=== PATIENT | female | born 2000 | race Caucasian/White ===

== ENCOUNTER 2022-01-26 02:57 | Emergency (ER) | payer OTHER, SELFPAY ==
[2022-01-26] MEDS: ONDANSETRON 4 MG/2 ML INJ IV (03:10)
[2022-01-26] MEDS: SODIUM CHLORIDE 0.9% 1,000 ML 1000 ML IV (03:10)
[2022-01-26 03:12] VITALS: BP 110/74; PULSE 70; RESP 20; TEMP 36.7; O2SAT 98; BMI 28.1
[2022-01-26 03:33] LABS: Add Manual Diff / Slide Review NO; Basophils Absolute Auto 0 /uL (0-100); Basophils Percent Auto 0.3 % (0-2); Eosinophils Absolute Auto 0 /uL (0-450); Eosinophils Percent Auto 0.5 % (2-4); Hematocrit 42.7 % (36-46); Hemoglobin 14.3 g/dL (12.0-16.0); Lymphocytes Absolute Auto 2000 /uL (1100-4500); Mean Corpuscular HGB Conc 33.6 % (30-36); Mean Corpuscular Hemoglobin 27.9 PG (26-34); Mean Corpuscular Volume 83.1 fL (80-100); Monocytes Absolute Auto 500 /uL (0-900); Monocytes Percent Auto 6.2 % (3-14); Neutrophils Absolute Auto 5600 /uL (1500-7000); Platelet Count 230 X10^3/uL (150-400); Red Blood Cell Count 5.13 X10^6/uL (4.0-5.2); White Blood Cell Count 8.1 X10^3/uL (4.5-11.0)
[2022-01-26 03:36] LABS: Ethanol (ETOH) 227 mg/dL
--- NOTE | 2022-01-26 03:37 | PC.NURSE ---
Pt ambulated to restroom with SBA.
[2022-01-26 03:38] LABS: Alanine Aminotransferase 17 IU/L (<35); Albumin 4.7 g/dL (3.5-5.0); Albumin Globulin Ratio 1.3 (1.0-2.8); Alkaline Phosphatase 56 U/L (38-126); Aspartate Aminotransferase 27 IU/L (14-36); Bilirubin Total 0.4 mg/dL (0.2-1.3); Blood Urea Nitrogen 10 mg/dL (7-17); Calcium 8.9 mg/dL (8.4-10.2); Carbon Dioxide 26 mmol/L (22-32); Chloride 106 mmol/L (98-107); Estimated Glomerular Filt Rate > 60 mL/min (>60); Globulin 3.6 g/dL (1.7-4.1); Glucose 94 mg/dL (70-100); HEMOLYSIS < 15 (0-50); Potassium 3.8 mmol/L (3.4-5.1); Sodium 145 mmol/L (137-145); Total Protein 8.3 g/dL (6.3-8.2)
--- NOTE | 2022-01-26 03:42 | ED.GENADULT ---
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 She had had an episode of emesis and was difficult to arouse. There were no immediate friends around to assume responsibility so 911 was called and she was transported to the emergency room for more thorough evaluation and safety. On arrival she is still intoxicated, able to speak in full sentences alert and oriented somewhat abashed that she is in the emergency department and hoping that she will not face further consequences and she is quite proud of a the achievements she has made so far in the [employer]. Review of Systems Review of Systems Narrative: Remainder of complete review of systems is otherwise unremarkable except for that included in the HPI. Patient History Social History Smoking Status: Never smoker Smoking Status: Never smoker alcohol intake frequency: holidays/special occasions only Substance Use Type: does not use Exam Initial Vital Signs Initial Vital Signs: Vital Signs Temperature 98.1 F 01/26/22 03:12 Pulse Rate 70 01/26/22 03:12 Respiratory Rate 20 01/26/22 03:12 Blood Pressure 110/74 01/26/22 03:12 Pulse Oximetry 98 01/26/22 03:12 Oxygen Delivery Method 01/26/22 03:12 General: Healthy appearing, in no acute distress. Pleasantly intoxicated, slightly slurred speech, cooperative and redirectable HEENT: Moist mucous membranes, normal sclera with reactive pupils, Neck: supple Respiratory: Lungs are clear to auscultation, no wheezing no rales no rhonchi. Full and symmetrical air movement Cardiac: Regular rate and rhythm no murmurs no bruits Abdomen: Soft, nontender, good bowel tones, no flank pain Skin: Warm and dry, no rashes Neurologic: intoxicated but otherwise Grossly neurologically intact with no obvious asymmetries or abnormalities Extremities: No trauma, well perfused Psych: Cooperative, Course Orders Ordered: ED Orders 01/26/22 03:10 Complete Blood Count AUTO DIFF Stat Comprehensive Metabolic Panel Stat ETOH [Ethanol (ETOH)] Stat Discontinued Medications Sodium Chloride (Normal Saline 0.9%) 1,000 mls @ 1,000 mls/hr IV BOLUS ONE Stop: 01/26/22 04:02 Last Admin: 01/26/22 03:10 Dose: 1,000 mls/hr Documented By: KRISTI Ondansetron HCl (Ondansetron 4 Mg/2 Ml Inj) 4 mg IV NOW ONE Stop: 01/26/22 03:04 Last Admin: 01/26/22 03:10 Dose: 4 mg Documented By: KRISTI Vital Signs Vital signs: Vital Signs - 8 hr 01/26/22 03:12 01/26/22 04:20 Temperature 98.1 F Pulse Rate 70 79 Respiratory Rate 20 18 Blood Pressure 110/74 113/81 Pulse Oximetry 98 98 Oxygen Delivery Method Room Air Room Air Medical Decision Making Lab Data Result diagrams: 01/26/22 03:10 01/26/22 03:10 Labs: Lab Results 01/26/22 01/26/22 01/26/22 Range/Units 03:10 03:10 03:10 WBC 8.1 (4.5-11.0) X10^3/uL RBC 5.13 (4.0-5.2) X10^6/uL Hgb 14.3 (12.0-16.0) g/dL Hct 42.7 (36-46) % MCV 83.1 (80-100) fL MCH 27.9 (26-34) PG MCHC 33.6 (30-36) % RDW 15.0 H (11.6-14.8) % Plt Count 230 (150-400) X10^3/uL Neut % (Auto) 69.0 (50-75) % Lymph % (Auto) 24.0 L (25-40) % Rooks % (Auto) 6.2 (3-14) % Eos % (Auto) 0.5 L (2-4) % Baso % (Auto) 0.3 (0-2) % Neut # (Auto) 5600 (5209-8867) /uL Lymph # (Auto) 2000 (0190-8375) /uL Rooks # (Auto) 500 (0-900) /uL Eos # (Auto) 0 (0-450) /uL Baso # (Auto) 0 (0-100) /uL Sodium 145 (137-145) mmol/L Potassium 3.8 (3.4-5.1) mmol/L Chloride 106 (98-107) mmol/L Carbon Dioxide 26 (22-32) mmol/L BUN 10 (7-17) mg/dL Creatinine 0.83 (0.52-1.04) mg/dL Estimated GFR > 60 (>60) mL/min BUN/Creatinine Ratio 12.0 (6-22) Glucose 94 (70-100) mg/dL Calcium 8.9 (8.4-10.2) mg/dL Total Bilirubin 0.4 (0.2-1.3) mg/dL AST 27 (14-36) IU/L ALT 17 (<35) IU/L Alkaline Phosphatase 56 (38-126) U/L Total Protein 8.3 H (6.3-8.2) g/dL Albumin 4.7 (3.5-5.0) g/dL Globulin 3.6 (1.7-4.1) g/dL Albumin/Globulin Ratio 1.3 (1.0-2.8) Ethyl Alcohol 227 H ( - 10) mg/dL MDM Narrative Medical decision making narrative: 21-year-old woman who is intoxicated after returning home from recent deployment. Found alone in hallway. She is so bring nicely. She is given a L of fluid along with Zofran to help with the consequences of her evening of drinking when she leticia. No evidence of suicidal ideation or other concerns. Which she leticia and can contact a friend pick her up she will be safe for home discharge Discharge Plan Departure Patient Disposition: Home Clinical Impression: Alcoholic intoxication Instructions: DI for Alcohol Poisoning Activity Restrictions/Additional Instructions: I am sorry you ended up in the emergency room tonight I am glad that you did not end up hurting yourself. Celebrating is a good thing, however moderation is going to be even better. In the emergency department you were given some nausea medicine as well as fluid. Hopefully this will help somewhat with the hangover that I expect you will have today. Please consider significantly moderating if not even completely stopping drinking for number of months. Please remember that [place], it is not legal for you to consume alcohol until April 12 of this year. Visit Report Forms: Patient Portal/API
[2022-01-26 04:20] VITALS: BP 113/81; PULSE 79; RESP 18; O2SAT 98
== END 2022-01-26 04:21 | disposition home or self-care (01) ==
PROVIDERS: Emergency Provider Emergency Medicine
DX: F10.129 Alcohol abuse with intoxication, unspecified (principal); Y90.7 Blood alcohol level of 200-239 mg/100 ml
CPT/HCPCS: 36415; 80053; 80320; 85025; 96374; 99284; J2405

== ENCOUNTER → 2022-12-09 16:19 | Outpatient (CLI) | payer OTHER, SELFPAY ==
--- NOTE | 2022-12-09 16:22 | DI.US.S_ITS ---
PROCEDURE: US OB <= 14 WEEKS FETUS INDICATIONS: DATING OUTSIDE/PRIOR DATING DATA: Last menstrual period (LMP): 09/09/2022. LMP-based estimated date of delivery (CASEY): 06/16/2023. First dating scan (date and location): 12/09/2022. Estimated date of delivery (CASEY) from first dating scan: 06/28/2023. TECHNIQUE: Real-time scanning was performed of the fetus and maternal pelvic organs, with image documentation. COMPARISON: None. FINDINGS: Embryo: [place]-rump length of 4.5 cm corresponding to a gestational age of 11 weeks 2 days Heart rate: 169 beats per minute Maternal organs: Ovaries are unremarkable. Probable right-sided corpus luteum. IMPRESSION: Single living intrauterine with gestational age by crown rump length of 11 weeks 2 days, discordant with clinical dates. We strive to produce accurate, complete, and clear reports of imaging services. To assist us in improving patient care, this report was composed using standard report templates and voice recognition software. Therefore, it may contain abnormal punctuation, insertions and/or omissions. Occasional wrong-word or sound-alike substitutions may occur. Though we review the report and make efforts to correct it, we do recommend that the report be read carefully in proper context to recognize any text inaccuracies. Dictated by: Dionte Charles M.D. on 12/10/2022 at 21:45 Approved by: Dionte Charles M.D. on 12/10/2022 at 22:10
== END ==
PROVIDERS: Referring Provider Family Medicine; Visit Provider Family Medicine
DX: Z34.01 Encounter for supervision of normal first pregnancy, first trimester (principal); Z3A.11 11 weeks gestation of pregnancy
CPT/HCPCS: 76801

== ENCOUNTER 2022-12-23 19:19 | Emergency (ER) | payer OTHER, SELFPAY ==
[2022-12-23 19:22] VITALS: BP 128/80; PULSE 69; RESP 16; TEMP 36.9; O2SAT 100; BMI 29.3
[2022-12-23 20:01] LABS: Appearance Urine UA CLEAR; Bilirubin Urine UA NEGATIVE (NEGATIVE); Color Urine UA YELLOW; Glucose Urine UA NEGATIVE (Negative); Ketones Urine UA NEGATIVE (NEGATIVE); Leukocyte Esterase Urine UA NEGATIVE (NEGATIVE); Nitrite Urine UA NEGATIVE (Negative); Occult Blood Urine UA NEGATIVE (Negative); Protein Urine UA NEGATIVE (Negative); Specific Gravity Urine UA 1.015 (1.000-1.035); Urobilinogen Urine UA 0.2 E.U./dL (0.2)
[2022-12-23 20:11] LABS: pH Urine UA 6.5 (4.5-8.0)
[2022-12-23 20:18] LABS: Amorphous Sediment Urine 2+; Bacteria Urine Few (2-10); Culture Indicated Urine Cult Not Indicated; RBC Urine None Seen (0-5/HPF); Squamous Epithelial Cell Urine 0-1 /HPF (0-5/HPF); WBC Urine 0-1/HPF (0-5/HPF)
[2022-12-23] MEDS: ACETAMINOPHEN 325 MG TABLET 650 MG PO (20:38)
[2022-12-23] MEDS: ONDANSETRON 4 MG ODT PO (20:38)
--- NOTE | 2022-12-23 20:57 | ED_ITS ---
HPI - Headache General Chief Complaint: Headache Stated Complaint: 13wks , vomiting excessively, dizzy Time Seen by Provider: 12/23/22 20:49 Mode of arrival: Ambulatory History of Present Illness HPI Narrative: Patient is a 22-year-old female currently 13 weeks . Presenting today with headache nausea vomiting and some dizziness. She said she has been doing well until today. She thought she might pass out due to the nausea vomiting dizziness. However now she is feeling better she received Tylenol and Zofran here in the ER. Vitals were stable. She is have any fever chills. No abdominal pain vaginal bleeding or any symptoms. Related Data Home Medications Medication Instructions Recorded Confirmed prenat.vits,allan,[id number] 1 tab PO DAILY 12/05/22 12/05/22 Previous Rx's Medication Instructions Recorded cephalexin 500 mg capsule 500 mg PO BID 7 days #14 caps 12/23/22 ondansetron 4 mg disintegrating 4 mg PO Q8H PRN nausea and 12/23/22 tablet vomiting #10 tabs Allergies Allergy/AdvReac Type Severity Reaction Status Date / Time No Known Drug Allergies Allergy Verified 12/23/22 19:30 Review of Systems Review of Systems ROS Unobtainable: All systems reviewed & are unremarkable except as noted in HPI and below Patient History Medical History (Updated 12/23/22 @ 21:09 by Sushma Flood DO) Acne Eczema History of broken finger Right wrist fracture Surgical History (Updated 12/05/22 @ 15:36 by Funmilayo Honeycutt RN) [place] teeth extracted Family History (Updated 12/05/22 @ 15:40 by Funmilayo Honeycutt RN) Grandmother Diabetes mellitus Hypertension Kidney failure Heart disease Grandfather Diabetes mellitus Asthma Family/Other Diabetes mellitus Heart attack Family/Other Diabetes mellitus Mother Diabetes mellitus Liver transplanted Alcohol abuse Father Family estrangement Social History marital status: unmarried,single number of children: 0 lives independently: Yes caregiver/support person: No housing: other (barracks) pets and animals: No education level: high school occupational status: employed (active duty) current occupational exposures/hazards: No (no HazMat duties since ) special karissa needs: No travel history: recent (domestic only) seatbelt use: always water heater temp set < 120 deg: Yes working smoke detector in home: Yes fire extinguisher in home: Yes carbon monox detector in home: Yes firearms in home: No do you feel safe at home: Yes Smoking Status: Former smoker second hand exposure: No alcohol intake: former (occasionally when not ) substance use type: does not use during the past year weight has: remained stable well-balanced diet: about half the time daily servings fruits/ve-4 caffeine: Yes (1 cup coffee in AM) Type(s) of exercise: walking Smoking Status: Former smoker alcohol intake frequency: holidays/special occasions only Substance Use Type: does not use Exam Initial Vital Signs Initial Vital Signs: Vital Signs Temperature 98.5 F 12/23/22 19:22 Pulse Rate 69 12/23/22 19:22 Respiratory Rate 16 12/23/22 19:22 Blood Pressure 128/80 12/23/22 19:22 Pulse Oximetry 100 12/23/22 19:22 Oxygen Delivery Method Room Air 12/23/22 19:22 GENERAL: Awake alert well-appearing 22-year-old female sitting upright laughing smiling hears well HEENT: Head atraumatic,EOMI, pupils reactive, face symmetric, moist mucous membranes CARDIOVASCULAR: Regular rate and rhythm without murmurs, rubs or gallops. RESPIRATORY: Breath sounds equal bilaterally, no wheezes rales or rhonchi. ABDOMEN: Soft, nontender. Normoactive bowel sounds all 4 quadrants. No guarding or rebound. EXTREMITIES: Normal range of motion, no clubbing or edema. Neurovascularly intact NEUROLOGICAL: Alert and oriented x4. SKIN: Warm, dry, no laceration, no petechiae, no rashes or lesions. Course Orders Ordered: ED Orders 12/23/22 19:43 Urinalysis and Microscopic Stat 12/23/22 21:05 Urine Culture Stat Discontinued Medications Acetaminophen (Acetaminophen 325 Mg Tablet) 650 mg PO NOW ONE Stop: 12/23/22 20:12 Last Admin: 12/23/22 20:38 Dose: 650 mg Documented By: Cefazolin Sodium (Cephalexin 250 Mg Cap Prepack) 1 bottle MISC SEEINSTR ONE Stop: 12/23/22 21:15 Last Admin: 12/23/22 21:38 Dose: 2 cap Documented By: GC Ondansetron HCl (Ondansetron 4 Mg Odt) 4 mg PO NOW ONE Stop: 12/23/22 20:12 Last Admin: 12/23/22 20:38 Dose: 4 mg Documented By: Vital Signs Vital signs: Vital Signs - 8 hr 12/23/22 21:49 Pulse Rate 63 Respiratory Rate 16 Blood Pressure 111/81 Pulse Oximetry 99 Oxygen Delivery Method Room Air MDM - Headache Lab Data Labs: Lab Results 12/23/22 Range/Units 19:43 Urine Color Yellow Urine Appearance Clear Urine pH 6.5 (4.5-8.0) Ur Specific [place] 1.015 (1.000-1.035) Urine Protein Negative (Negative) Urine Glucose (UA) Negative (Negative) g/dL Urine Ketones Negative (NEGATIVE) Urine Occult Blood Negative (Negative) Urine Nitrate Negative (Negative) Urine Bilirubin Negative (NEGATIVE) Urine Urobilinogen 0.2 (0.2) E.U./dL Ur Leukocyte Esterase Negative (NEGATIVE) Urine RBC None seen (0-5/HPF) Urine WBC 0-1/hpf (0-5/HPF) Ur Squamous Epith Cells 0-1 /hpf (0-5/HPF) Amorphous Sediment 2+ Urine Bacteria Few (2-10) H (None) Ur Culture Indicated? Cult not indicated MDM Narrative Medical decision making narrative: Patient well-appearing 22-year-old female sitting up smiling laughing. Vitals are stable. She does have some bacteria in her urine no leukocytes or nitrates will go ahead and treat for a UTI. She had a ultrasound on December 09 showing a single IUP at 11 weeks and 2 days at that time. Not having any abdominal pain vaginal bleeding no need for repeat ultrasound today. Vitals are stable not significantly dehydrated. No evidence of severe sepsis. Discharge Plan Departure Patient Disposition: Home Clinical Impression: UTI (urinary tract infection) Instructions: DI for Urinary Tract Infection (UTI) Activity Restrictions/Additional Instructions: *You have been diagnosed with UTI with *What to do: Increase fluids as tolerated. You do have a mild bladder infection. Your symptoms should improve with antibiotics. *Continue to take medications as directed -->DOD Keflex 500 mg twice a day for 7 days Zofran 4 mg every 8 hours if needed for nausea or vomiting *Follow up with your primary care provider in 2-3 days or call [phone] *Return to ER if you should have persistent vomiting abdominal pain vaginal bleeding passing out or any new, worsening or concerning symptoms Prescriptions: New cephalexin 500 mg capsule 500 mg PO BID 7 Days Qty: 14 0RF ondansetron 4 mg tablet,disintegrating 4 mg PO Q8H PRN (Reason: nausea and vomiting) Qty: 10 0RF No Action prenat.vits,allan,[id number] Tablet 1 tab PO DAILY Referrals: ProviderLilia [Primary Care Provider] - Stand Alone Forms: Patient Portal/API
[2022-12-23] MEDS: cephALEXin 250 MG CAP PREPACK 1 BOTTLE MISC (21:38)
[2022-12-23 21:49] VITALS: BP 111/81; PULSE 63; RESP 16; O2SAT 99
== END 2022-12-23 21:50 | disposition home or self-care (01) ==
PROVIDERS: Emergency Provider Emergency Medicine
DX: O23.41 Unspecified infection of urinary tract in pregnancy, first trimester (principal); R51.9 Headache, unspecified; Z3A.13 13 weeks gestation of pregnancy
CPT/HCPCS: 81001; 87086; 99283

== ENCOUNTER → 2022-12-31 14:59 | Outpatient (CLI) | payer OTHER, SELFPAY ==
[2022-12-31 15:43] LABS: Appearance Urine UA CLEAR; Bilirubin Urine UA NEGATIVE (NEGATIVE); Color Urine UA YELLOW; Glucose Urine UA NEGATIVE (Negative); Ketones Urine UA NEGATIVE (NEGATIVE); Leukocyte Esterase Urine UA NEGATIVE (NEGATIVE); Nitrite Urine UA NEGATIVE (Negative); Occult Blood Urine UA NEGATIVE (Negative); Protein Urine UA NEGATIVE (Negative); Urobilinogen Urine UA 0.2 E.U./dL (0.2)
[2022-12-31 16:25] LABS: Add Manual Diff / Slide Review NO; Basophils Absolute Auto 0 /uL (0-100); Basophils Percent Auto 0.5 % (0-2); Eosinophils Absolute Auto 0 /uL (0-450); Eosinophils Percent Auto 0.6 % (2-4); Hematocrit 34.8 % (36-46); Hemoglobin 11.8 g/dL (12.0-16.0); Lymphocytes Absolute Auto 1600 /uL (1100-4500); Lymphocytes Percent Auto 21.9 % (25-40); Mean Corpuscular Hemoglobin 27.2 PG (26-34); Monocytes Absolute Auto 600 /uL (0-900); Monocytes Percent Auto 7.4 % (3-14); Neutrophils Absolute Auto 5200 /uL (1500-7000); Neutrophils Percent Auto 69.6 % (50-75); Platelet Count 186 X10^3/uL (150-400); Red Blood Cell Count 4.35 X10^6/uL (4.0-5.2); Red Cell Distribution Width 13.5 % (11.6-14.8); White Blood Cell Count 7.5 X10^3/uL (4.5-11.0)
[2022-12-31 16:56] LABS: GTT (PREG) 1 Hour PP 50gm Dose 136 mg/dL (76-139)
[2023-01-01 06:19] LABS: RPR Screen Non Reactive (Non Reactive)
[2023-01-01 11:37] LABS: Varicella IgG Antibody 686 index (Immune >165)
[2023-01-02 16:10] LABS: Hepatitis B Surface Antigen NEGATIVE s/c (NEGATIVE); Rubella Antibody IgG 27.9 IU/mL (>15)
[2023-01-02 16:29] LABS: HIV 1 & 2 Ab/Ag 4th Gen Combo NEGATIVE (NEGATIVE); Hep C Virus Ab w/Reflex Quant NEGATIVE s/c (NEGATIVE)
== END ==
PROVIDERS: Referring Provider Family Medicine; Visit Provider Family Medicine
DX: Z34.01 Encounter for supervision of normal first pregnancy, first trimester (principal)
CPT/HCPCS: 80055; 81003; 82950; 86787; 86803; 86850; 86900; 86901; 87077; 87086; 87186; 87389

== ENCOUNTER → 2023-01-29 14:54 | Outpatient (CLI) | payer OTHER, SELFPAY ==
[2023-02-01 20:33] LABS: Estriol, Free 1.35 ng/mL (.); Inhibin A, Dimeric 155.02 pg/mL (.); Inhibin A, MoM 1.16 (.); Maternal Ethnicity Caucasian (.); Maternal Weight 197 lbs (.); Number of Fetuses No (.); OSBR Risk 1 IN 10000 (.); Results Report (.); Test Results *Screen Negative* (.); hCG, MoM 0.73 (.); hCG, Serum 16939 mIU/mL (.)
== END ==
PROVIDERS: Referring Provider Family Medicine; Visit Provider Family Medicine
DX: Z34.02 Encounter for supervision of normal first pregnancy, second trimester (principal); Z3A.18 18 weeks gestation of pregnancy
CPT/HCPCS: 36415; 82105; 82677; 84702; 86336

== ENCOUNTER → 2023-02-07 08:00 | Outpatient (CLI) | payer OTHER, SELFPAY ==
--- NOTE | 2023-02-07 08:02 | DI.US.S_ITS ---
PROCEDURE: US OB >= 14 WEEKS FETUS INDICATIONS: ANATOMY SCAN OUTSIDE/PRIOR DATING DATA: Last menstrual period (LMP): 09/09/2022. LMP-based estimated date of delivery (CASEY): 06/16/2023. First dating scan (date and location): 12/09/2022. Estimated date of delivery (CASEY) from first dating scan: 06/28/2023. TECHNIQUE: Real-time scanning was performed of the fetus, with image documentation and biometric measurements. Endovaginal scanning: Not performed COMPARISON: [facility], OB <= 14 WEEKS FETUS, 12/09/2022, 16:56. FINDINGS: General: A single living intrauterine gestation is present. Presentation: Vertex. Placenta: Placental position is anterior , without previa. Amniotic fluid index: 10.7 cm, normal range is 5-24 cm. Single deepest vertical pocket is 3.2 cm. heart rate: 143 beats per minute. Maternal cervical canal: 4.3 cm long. Normal lower limit is 2.5 cm. biometrics: Biparietal diameter: 4.4 centimeters 19 weeks 2 days Head circumference: 16.5 centimeters 19 weeks 2 days Abdominal circumference: 14.4 centimeters 19 weeks 5 days Femur length: 2.9 centimeters 19 weeks 1 day estimated gestational age: 19 weeks 6 days Composite gestational age from present scan: 19 weeks 3 days Estimated weight and percentile: 291 grams, 22nd percentile Anatomic survey: Neuro: Ventricles are non-dilated at less than 10 mm. Cisterna magna is normal at 3-11 mm. Cerebellum is normal in size and morphology. Nuchal skin fold: Normal at less than 6 mm between 14-21 weeks gestational age. Face: Unremarkable orbits. Nose, lips, profile not well visualized. Spine: No evidence for spina bifida. Heart: Four-chamber cardiac view and ventricular outflow tracts not well visualized. Diaphragm: Diaphragm is intact. Stomach: Left-sided stomach is present. Kidneys: No hydronephrosis. Normal is less than 5 mm in 2nd trimester, less than 7 mm in 3rd trimester. Cord: 3-vessel cord has orthotopic insertion. Bladder: Normal in size. Extremities: All 4 extremities identified. IMPRESSION: 1. Single living intrauterine . 2. nose, lips, profile, four-chamber cardiac view, and ventricular outflow tracts not well visualized due to lie. Attention on follow-up is recommended. 3. Otherwise, the visualized anatomy is within normal limits. We strive to produce accurate, complete, and clear reports of imaging services. To assist us in improving patient care, this report was composed using standard report templates and voice recognition software. Therefore, it may contain abnormal punctuation, insertions and/or omissions. Occasional wrong-word or sound-alike substitutions may occur. Though we review the report and make efforts to correct it, we do recommend that the report be read carefully in proper context to recognize any text inaccuracies. Dictated by: Dionte Charles M.D. on 02/07/2023 at 11:05 Approved by: Dionte Charles M.D. on 02/07/2023 at 11:51
== END ==
PROVIDERS: Referring Provider Family Medicine; Visit Provider Family Medicine
DX: Z34.02 Encounter for supervision of normal first pregnancy, second trimester (principal); Z3A.19 19 weeks gestation of pregnancy
CPT/HCPCS: 76811

== ENCOUNTER → 2023-03-10 07:09 | Outpatient (CLI) | payer OTHER, SELFPAY ==
--- NOTE | 2023-03-10 07:10 | DI.US.S_ITS ---
PROCEDURE: US OB >= 14 WEEKS FETUS INDICATIONS: anatomy scan repeat OUTSIDE/PRIOR DATING DATA: Last menstrual period (LMP): 09/09/2019. LMP-based estimated date of delivery (CASEY): 06/16/2023. First dating scan (date and location): 12/09/2022 at . Estimated date of delivery (CASEY) from first dating scan: 06/28/2023. The calculations are made using the working CASEY of 06/28/2023. TECHNIQUE: Real-time scanning was performed of the fetus, with image documentation and biometric measurements. COMPARISON: [facility], OB <= 14 WEEKS FETUS, 12/09/2022, 16:56. [facility], OB >= 14 WEEKS FETUS, 02/07/2023, 8:40. FINDINGS: General: A single living intrauterine gestation is present. Presentation: Vertex. Placenta: Placental position is anterior , without previa. Amniotic fluid index: 11.4 cm, normal range is 5-24 cm. Single deepest vertical pocket is 4.4 cm. heart rate: 149 beats per minute. Maternal cervical canal: 4.4 cm long. Normal lower limit is 2.5 cm. biometrics: Not performed Clinically estimated gestational age: 24 weeks 2 days Other: Face: Nose and lips, facial profile are normal. Heart: 4-chambered heart is present, with normal ventricular outflow tracts. IMPRESSION: 1. A single living intrauterine gestation redemonstrated. 2. Normal nose and lips, facial profile, 4-chamber heart and ventricular outflow tracts. We strive to produce accurate, complete, and clear reports of imaging services. To assist us in improving patient care, this report was composed using standard report templates and voice recognition software. Therefore, it may contain abnormal punctuation, insertions and/or omissions. Occasional wrong-word or sound-alike substitutions may occur. Though we review the report and make efforts to correct it, we do recommend that the report be read carefully in proper context to recognize any text inaccuracies. Dictated by: Omer Avila M.D. on 03/10/2023 at 10:13 Approved by: Omer Avila M.D. on 03/10/2023 at 10:18
== END ==
PROVIDERS: Referring Provider Family Medicine; Visit Provider Family Medicine
DX: Z34.02 Encounter for supervision of normal first pregnancy, second trimester (principal); Z3A.24 24 weeks gestation of pregnancy
CPT/HCPCS: 76811

== ENCOUNTER → 2023-04-04 13:57 | Outpatient (CLI) | payer OTHER, SELFPAY ==
[2023-04-04 14:43] LABS: Add Manual Diff / Slide Review NO; Basophils Absolute Auto 0 /uL (0-100); Basophils Percent Auto 0.3 % (0-2); Eosinophils Absolute Auto 100 /uL (0-450); Eosinophils Percent Auto 0.9 % (2-4); Hematocrit 36.7 % (36-46); Hemoglobin 12.5 g/dL (12.0-16.0); Lymphocytes Absolute Auto 1500 /uL (1100-4500); Lymphocytes Percent Auto 15.7 % (25-40); Mean Corpuscular HGB Conc 34.2 % (30-36); Mean Corpuscular Hemoglobin 27.9 PG (26-34); Mean Corpuscular Volume 81.8 fL (80-100); Monocytes Absolute Auto 700 /uL (0-900); Monocytes Percent Auto 7.6 % (3-14); Neutrophils Absolute Auto 7000 /uL (1500-7000); Neutrophils Percent Auto 75.5 % (50-75); Platelet Count 215 X10^3/uL (150-400); Red Blood Cell Count 4.49 X10^6/uL (4.0-5.2); Red Cell Distribution Width 14.7 % (11.6-14.8); White Blood Cell Count 9.3 X10^3/uL (4.5-11.0)
[2023-04-04 16:13] LABS: GTT (PREG) 1 Hour PP 50gm Dose 124 mg/dL (76-139)
== END ==
PROVIDERS: Referring Provider Family Medicine; Visit Provider Family Medicine
DX: Z34.02 Encounter for supervision of normal first pregnancy, second trimester (principal); Z3A.24 24 weeks gestation of pregnancy
CPT/HCPCS: 36415; 82950; 85025; 86850

== ENCOUNTER 2023-04-28 13:51 | Outpatient (CLI) | payer OTHER, SELFPAY ==
[2023-04-28 14:42] LABS: Appearance Urine UA CLEAR; Bilirubin Urine UA NEGATIVE (NEGATIVE); Color Urine UA YELLOW; Glucose Urine UA NEGATIVE (Negative); Ketones Urine UA NEGATIVE (NEGATIVE); Leukocyte Esterase Urine UA NEGATIVE (NEGATIVE); Nitrite Urine UA NEGATIVE (Negative); Occult Blood Urine UA NEGATIVE (Negative); Protein Urine UA NEGATIVE (Negative); Specific Gravity Urine UA <=1.005 (1.000-1.035); Urobilinogen Urine UA 0.2 E.U./dL (0.2); pH Urine UA 6.5 (4.5-8.0)
[2023-04-28 14:44] LABS: Bacteria Urine None Seen; Culture Indicated Urine Cult Not Indicated; RBC Urine None Seen (0-5/HPF); Squamous Epithelial Cell Urine None Seen (0-5/HPF); Urine Comments N; WBC Urine None Seen (0-5/HPF)
== END 2023-04-28 15:23 | disposition home or self-care (01) ==
LOC: LABOR 14:42 → OB 04-30 12:51
PROVIDERS: Visit Provider Family Medicine
DX: O26.893 Other specified pregnancy related conditions, third trimester (principal); R10.2 Pelvic and perineal pain; Z3A.31 31 weeks gestation of pregnancy
CPT/HCPCS: 59025; 81001; G0378; G0379

== ENCOUNTER 2023-06-03 13:48 | Outpatient (CLI) | payer OTHER, SELFPAY ==
[2023-06-03 14:50] LABS: Appearance Urine UA CLEAR; Bilirubin Urine UA NEGATIVE (NEGATIVE); Color Urine UA YELLOW; Glucose Urine UA TRACE g/dL (Negative); Ketones Urine UA NEGATIVE (NEGATIVE); Leukocyte Esterase Urine UA NEGATIVE (NEGATIVE); Nitrite Urine UA NEGATIVE (Negative); Occult Blood Urine UA NEGATIVE (Negative); Protein Urine UA NEGATIVE (Negative); Specific Gravity Urine UA <=1.005 (1.000-1.035); Urobilinogen Urine UA 0.2 E.U./dL (0.2)
[2023-06-03 15:03] LABS: pH Urine UA 5.5 (4.5-8.0)
[2023-06-03 15:32] LABS: Bacteria Urine Occasional (0-1); Culture Indicated Urine Cult Not Indicated; RBC Urine 0-1/HPF (0-5/HPF); Squamous Epithelial Cell Urine 1-5 /HPF (0-5/HPF); WBC Urine None Seen (0-5/HPF)
[2023-06-03 16:03] LABS: Strep Grp B PCR POS for Grp B Strep
== END 2023-06-03 16:00 | disposition home or self-care (01) ==
LOC: LABOR 14:11 → OB 06-09 08:21
PROVIDERS: Referring Provider Obstetrics & Gynecology; Visit Provider Obstetrics & Gynecology
DX: Z03.71 Encounter for suspected problem with amniotic cavity and membrane ruled out (principal); O47.03 False labor before 37 completed weeks of gestation, third trimester; Z3A.36 36 weeks gestation of pregnancy
CPT/HCPCS: 59025; 81001; 84112; 87653; G0378; G0379

== ENCOUNTER 2023-07-01 19:53 | Inpatient (IN) | payer OTHER, MEDICAID, SELFPAY ==
[2023-07-01] MEDS: miSOPROStoL 25 MCG TABLET VAG (21:00)
[2023-07-01 21:05] VITALS: BP 134/91
[2023-07-01 21:24] LABS: Add Manual Diff / Slide Review NO; Alanine Aminotransferase 14 IU/L (<35); Albumin 3.5 g/dL (3.5-5.0); Alkaline Phosphatase 191 U/L (38-126); Aspartate Aminotransferase 21 IU/L (14-36); BUN Creatinine Ratio 13.7 (6-22); Basophils Absolute Auto 0 /uL (0-100); Basophils Percent Auto 0.1 % (0-2); Bilirubin Total 0.4 mg/dL (0.2-1.3); Blood Urea Nitrogen 10 mg/dL (7-17); Calcium 9.3 mg/dL (8.4-10.2); Carbon Dioxide 20 mmol/L (22-32); Chloride 108 mmol/L (98-107); Eosinophils Absolute Auto 0 /uL (0-450); Eosinophils Percent Auto 0.2 % (2-4); Estimated Glomerular Filt Rate > 60 mL/min (>60); Globulin 3.4 g/dL (1.7-4.1); Glucose 113 mg/dL (70-100); HEMOLYSIS < 15 (0-50); Hematocrit 36.5 % (36-46); Hemoglobin 12.4 g/dL (12.0-16.0); Lymphocytes Absolute Auto 1800 /uL (1100-4500); Lymphocytes Percent Auto 22.7 % (25-40); Mean Corpuscular HGB Conc 34.1 % (30-36); Mean Corpuscular Hemoglobin 27.2 PG (26-34); Mean Corpuscular Volume 79.7 fL (80-100); Monocytes Absolute Auto 800 /uL (0-900); Monocytes Percent Auto 9.7 % (3-14); Neutrophils Absolute Auto 5300 /uL (1500-7000); Neutrophils Percent Auto 67.3 % (50-75); Platelet Count 218 X10^3/uL (150-400); Potassium 3.6 mmol/L (3.4-5.1); Red Blood Cell Count 4.58 X10^6/uL (4.0-5.2); Red Cell Distribution Width 14.3 % (11.6-14.8); Sodium 135 mmol/L (137-145); Total Protein 6.9 g/dL (6.3-8.2); White Blood Cell Count 7.8 X10^3/uL (4.5-11.0)
[2023-07-02 00:31] LABS: Creatinine Urine Random 145.7 mg/dL; Protein (Total) Urine Random 29 mg/dL (0-12); Protein Creatinine Ratio Urine 0.19 GRAM/24H
[2023-07-02] MEDS: miSOPROStoL 25 MCG TABLET VAG ×2 (00:57→05:00)
--- NOTE | 2023-07-02 09:07 | P.HPOB_ITS ---
OB HPI Date/Time Date of admission: 07/01/23 Date Patient Seen: 07/02/23 History of Present Condition Chief complaint: observation of labor CASEY Calculator 2 Estimated Delivery Date Method Current WG Current Estimate 06/28/23 Manual 40w 4d Final CASEY - PRINCE Other Estimates 06/16/23 LMP (Certain) 42w 2d 06/28/23 Ultrasound #1 40w 4d Estimated Gestational Age (weeks): 40w4d : 1 Para: 0 Narrative: 23yo at 40w4d here for elective IOL. Pt denies any vaginal bleeding or LOF. She is feeling her baby move regularly. She is feeling some cramping since receiving cytotec overnight. No complications with . care: good care, initiated at week # (14) and pounds weight gain (40) Dating criteria OB: based on 1st trimester US only Ultrasounds: normal 1st trimester US and normal mid trimester US Obstetrical complications: none Medical complications OB: none Preadmission Labs Last OB Lab Results: 2 Blood Type B Positive 07/01/23 20:35 Antibody Screen Negative 07/01/23 20:35 Hematocrit 36.5 % (36-46) 07/01/23 20:35 Hemoglobin 12.4 g/dL (12.0-16.0) 07/01/23 20:35 Hepatitis B Surface Antigen Negative s/c (NEGATIVE) 12/31/22 15 :05 Hepatitis C Antibody Negative s/c (NEGATIVE) 12/31/22 15:05 Rubella Antibody 27.9 IU/mL (>15) 12/31/22 15:05 Varicella-Zoster IgG Antibody 686 index (Immune >165) 12/31/22 15:05 Glucose 1 Hour 124 mg/dL (76-139) 04/04/23 15:27 Group B Streptococcus (PCR) Pos for grp b strep H 06/03/23 14:4 6 -: Urine: negative Genetic Screens: Quad screen: Normal External Labs -: Urine: negative Evaluation Evaluation Baseline heart rate: 125 Variability: Moderate (11-25) monitor accelerations: Present Monitor Decelerations: Absent Contraction Frequency (minutes): 6 Uterine Contraction Intensity: Mild Status: Category l Dilation (cm): 2 Effacement (%): 75 Dilation: 1-2 cm Effacement: 60-70% station: -4 Position of cervix: posterior Consistency: soft Valencia score: 5 PFSH Medical History (Updated 04/11/23 @ 21:37 by Ines Marshall) Irregular menstrual cycle History of broken finger Right wrist fracture Acne Eczema Surgical History (Updated 04/11/23 @ 21:37 by Ines Marshall) Anesthesia History of root canal procedure (~12/2020) Golva teeth extracted (~11/2020) Family History (Updated 04/11/23 @ 21:39 by Ines Marshall) Grandmother Diabetes mellitus Hypertension Kidney failure Heart disease Grandfather Diabetes mellitus Asthma Hypertension Family/Other Diabetes mellitus Heart attack Family/Other Diabetes mellitus Mother Diabetes mellitus Liver transplanted Alcohol abuse Father Family estrangement Social History marital status: unmarried,single number of children: 0 lives independently: Yes caregiver/support person: No housing: other ([employer]) pets and animals: No education level: high school occupational status: employed (active duty) current occupational exposures/hazards: No (no HazMat duties since ) special karissa needs: No travel history: recent (domestic only) seatbelt use: always water heater temp set < 120 deg: Yes working smoke detector in home: Yes fire extinguisher in home: Yes carbon monox detector in home: Yes firearms in home: No do you feel safe at home: Yes Smoking Status: Former smoker second hand exposure: No alcohol intake: former (occasionally when not ) substance use type: does not use during the past year weight has: remained stable well-balanced diet: about half the time daily servings fruits/ve-4 caffeine: Yes (1 cup coffee in AM) Type(s) of exercise: walking Meds Home Medications and Allergies Home Medications Medication Instructions Recorded Confirmed Type prenat.vits,allan,bgx-[id number] 1 tab PO DAILY 12/05/22 06/25/23 History ondansetron 4 mg disintegrating 4 mg PO Q8H PRN nausea and 12/23/22 06/25/23 Rx tablet vomiting #10 tabs Allergies Allergy/AdvReac Type Severity Reaction Status Date / Time No Known Drug Allergies Allergy Verified 06/25/23 15:27 OB Exam Resp Effort & Inspection: normal respiratory effort Auscultation: clear to auscultation bilaterally Cardio Rate: regular rate Rhythm: regular rhythm Heart Sounds: S1 normal, S2 normal and no murmurs GI Inspection: non-distended Palpation: Yes soft and No tender Presentation: vertex (confirmed bedside ultrasound) Objective Labs 07/01/23 20:35 07/01/23 20:35 Labs: Laboratory Results - last 24 hr 07/01/23 07/01/23 20:35 21:45 WBC 7.8 RBC 4.58 Hgb 12.4 Hct 36.5 MCV 79.7 L MCH 27.2 MCHC 34.1 RDW 14.3 Plt Count 218 Neut % (Auto) 67.3 Lymph % (Auto) 22.7 L Mcintosh % (Auto) 9.7 Eos % (Auto) 0.2 L Baso % (Auto) 0.1 Neut # (Auto) 5300 Lymph # (Auto) 1800 Mcintosh # (Auto) 800 Eos # (Auto) 0 Baso # (Auto) 0 Sodium 135 L Potassium 3.6 Chloride 108 H Carbon Dioxide 20 L BUN 10 Creatinine 0.73 Estimated GFR > 60 BUN/Creatinine Ratio 13.7 Glucose 113 H Calcium 9.3 Total Bilirubin 0.4 AST 21 ALT 14 Alkaline Phosphatase 191 H Total Protein 6.9 Albumin 3.5 Globulin 3.4 Albumin/Globulin Ratio 1.0 U Random Total Protein 29 H Urine Creatinine 145.7 Protein/Creatinin Ratio 0.19 Blood Type B Positive Antibody Screen Negative Assessment and Plan Assessment and Plan Assessment and Plan narrative: 23yo at 40w4d here for elective IOL. GBS positive, Rh positive. No complications with . Received 3 doses of cytotec overnight with some cervical change. - Expectant management, anticipate - FHT reassuring - GBS positive, start ampicillin prophylaxis now - Start pitocin, titrate as tolerated - Epidural for pain control when desired
[2023-07-02] MEDS: OXYTOCIN PREMIX 30 UNIT/500 ML PLAST..BAG IV (09:13)
[2023-07-02] MEDS: LACTATED RINGERS 1,000 ML 100 ML IV (09:13)
[2023-07-02] MEDS: AMPICILLIN 2,000 MG in SODIUM CHLORIDE 0.9% 100 ML 200 MG IV (09:32)
[2023-07-02] MEDS: AMPICILLIN 1,000 MG in SODIUM CHLORIDE 0.9% 100 ML 200 MG IV ×2 (13:02→17:26)
--- NOTE | 2023-07-02 13:40 | P.PCN_ITS ---
Regional Block Pre-procedure Procedure: Continuous Lumbar Epidural for L&D Attending OB provider: Kelli Boo PMH/ROS narrative: 23yo at 40w4d here for elective IOL, no complications with , no significant PMH. ASA Class: II Labs: Hct 36.5 % (36-46) 07/01/23 20:35 Plt Count 218 X10^3/uL (150-400) 07/01/23 20:35 Medications: Current Medications Generic Name Dose Route Start Last Admin Trade Name Freq PRN Reason Stop Dose Admin Calcium Carbonate 1,000 mg 07/01/23 19:56 Calcium Carbonate 500 Mg Tab PO Q4HR PRN Dyspepsia Carboprost Tromethamine 250 mcg 07/01/23 19:56 Carboprost 250 Mcg/Ml Ampul IM Q90M PRN Bleeding Diphenhydramine HCl 25 mg 07/02/23 13:38 Diphenhydramine 50 Mg/Ml Vial IV Q10M PRN Pruritis Fentanyl 50 mcg 07/01/23 19:56 Fentanyl 100 Mcg/2 Ml Inj IV Q1H PRN Pain, Moderate (4-6) Oxytocin/Lactated Ringer's 30 unit in 500 mls @ 200 mls/hr 07/01/23 19:56 Oxytocin Premix IV CONT PRN Bleeding Protocol Oxytocin/Lactated Ringer's 30 unit in 500 mls @ 2 mls/hr 07/01/23 20:00 07/02/23 09:13 Oxytocin Premix IV 2 milliunit/min TITRATE MARTIN 2 mls/hr Administration Protocol 2 MILLIUNIT/MIN Ampicillin Sodium 1,000 mg/ 100 mls @ 200 mls/hr 07/02/23 00:00 07/02/23 13:02 Sodium Chloride IV 200 mls/hr Q4H MARTIN Administration Lactated Ringer's 1,000 mls @ 100 mls/hr 07/01/23 20:00 07/02/23 09:13 Lactated Ringers IV 100 mls/hr CONT MARTIN Administration Tranexamic Acid 1,000 mg/ 100 mls @ 200 mls/hr 07/01/23 19:56 Sodium Chloride IV NOW PRN Bleeding Oxytocin/Lactated Ringer's 30 unit in 500 mls @ 2 mls/hr 07/02/23 08:30 Oxytocin Premix IV TITRATE MARTIN Protocol 2 MILLIUNIT/MIN Bupivacaine HCl 25 ml/ Sodium 100 mls @ 8 mls/hr 07/02/23 13:45 Chloride EPIDURAL CONT MARTIN Lidocaine HCl 20 ml 07/01/23 19:56 Lidocaine 1% 20 Ml INJ INTRA-OP PRN Post Delivery Methylergonovine Maleate 0.2 mg 07/01/23 19:56 Methylergonovine 0.2 Mg/Ml Vial IM NOW PRN Bleeding Methylergonovine Maleate 0.2 mg 07/01/23 19:56 Methylergonovine 0.2 Mg Tablet PO Q6HR PRN Heavy Bleeding Misoprostol 400 mcg 07/01/23 19:56 Misoprostol 200 Mcg Tablet SL NOW PRN Bleeding Misoprostol 25 mcg 07/01/23 19:56 07/02/23 05:00 Misoprostol 25 Mcg Tablet VAG 25 mcg Q4H PRN Administration IOL Misoprostol 800 mcg 07/01/23 19:56 Misoprostol 200 Mcg Tablet NE NOW PRN Bleeding Nalbuphine HCl 2.5 mg 07/02/23 13:38 Nalbuphine 20 Mg/Ml Ampul IV Q10M PRN Pruritis Naloxone HCl 0.2 mg 07/01/23 19:56 Naloxone 0.4 Mg/Ml Vial IV Q2MIN PRN Opiate Reversal Ondansetron HCl 4 mg 07/01/23 19:56 Ondansetron 4 Mg/2 Ml Inj IV Q4HR PRN Nausea And Vomiting Oxytocin 10 unit 07/01/23 19:56 Oxytocin 10 Unit/Ml Vial IM NOW PRN Bleeding Allergies: Allergies Allergy/AdvReac Type Severity Reaction Status Date / Time No Known Drug Allergies Allergy Verified 06/25/23 15:27 Procedure Insertion date: 07/02/23 Insertion time: 13:59 Prep/Local: betadine x3 and 1% lidocaine Interspace: L3-4 Patient position: sitting Needle: 18 gauge InsideAxis™tead (CSE:27g Pencan through Hustead, clear CSF, 2.5mg MPF Bupiv) Loss of resistance with: saline JAMEEL at (cm): 7 Catheter placed at SKIN (cm): 13 Catheter in SPACE (cm): 6 Insertion: No CSF, No Blood, No Paresthesia with insertion, No Paresthesia with injection and No Test dose reaction Initial Medications TEST DOSE time: 14:00 TEST DOSE: 1.5% lidocaine with epinephrine 1:200k (mL): 3 BOLUS DOSE time: 14:20 BOLUS DOSE (mL): 4 BOLUS DOSE med: other (infusate) Infusion INFUSION: 0.125% bupivacaine and with fentanyl 2 mcg/mL Initial rate (mL/hr): 8 Subsequent interventions: PCEA: 8+4@15min 10mL 2% lido --> to OR. no adequate block in OR --> SAB for CS Post-procedure Anesthesia time START: 13:41 Anesthesia time END: 08:17 Post-procedure Anesthesia Assessment: Yes CV function: HR/BP stable, Yes Resp function: RR/sat/airway adequate, Yes Post-op hydration adequate, Yes Pain control adequate, Yes Nausea & vomiting absent, Yes Temperature > 36 C, Yes Mental status appropriate and No Anesthesia complications
[2023-07-02] MEDS: FENT 2MCG/ML BUPIV 0.125% EPI 200 MCG/100 ML PLAST..BAG 8 MCG EPIDURAL ×2 (14:20→19:01)
--- NOTE | 2023-07-02 16:45 | PM.OBPNLAB ---
Date/Time Date Patient Seen: 07/02/23 Time Patient Seen: 14:30 Pain Control Pain control: epidural Pelvic Exam Dilation (cm): 4 Effacement (%): 90 station: -2 Amniotic membrane status: Ruptured Comments: After informed consent, AROM placed with meconium-stained fluid present Contractions Contractions on admission: none Monitor mode: External Pitocin rate (mU/min): 16 Contraction frequency (min): 3 Contraction intensity: Strong/Firm Status status: Category l Heart Rate Baseline: 120 Monitor Accelerations: Present Monitor Decelerations: Early Monitor Variability: Moderate Assessment and Plan Comments: 23yo at 40w4d here for elective IOL. GBS positive, Rh positive. No complications with . Received 3 doses of cytotec overnight with some cervical change, now on pitocin with good change thus far. AROM performed with meconium stained fluid present. - Anticipate , although pt does have mild caput present and early decels already. Will continue with frequent position changes. - FHT reassuring - GBS positive, continue ampicillin prophylaxis now - Continue pitocin, titrate as tolerated - Epidural in place for pain control
--- NOTE | 2023-07-02 16:48 | PM.OBPNLAB ---
Date/Time Date Patient Seen: 07/02/23 Time Patient Seen: 16:48 Pain Control Pain control: epidural Pelvic Exam Dilation (cm): 4 Effacement (%): 90 station: -2 Amniotic membrane status: Ruptured Contractions Monitor mode: Internal Pitocin rate (mU/min): 16 Contraction frequency (min): 2 Contraction duration (min): 1 Contraction pattern: Regular Contraction intensity: Strong/Firm Intrauterine tone measurement: 230 Status status: Category l Heart Rate Baseline: 120 Monitor Accelerations: Present Monitor Decelerations: Absent Monitor Variability: Moderate Assessment and Plan Comments: 23yo at 40w4d here for elective IOL. GBS positive, Rh positive. No complications with . Received 3 doses of cytotec overnight with some cervical change, now on pitocin with good change thus far. AROM performed with meconium stained fluid present. Pt with no cervical change in over 2hrs. IUPC placed, adequate contraction pattern. - Will continue to monitor for cervical change, repeat cervical exam in another 2hrs. - GBS positive, continue ampicillin prophylaxis - Continue pitocin, titrate as tolerated - Epidural in place for pain control
--- NOTE | 2023-07-02 18:14 | PM.OBPNLAB ---
Date/Time Date Patient Seen: 07/02/23 Time Patient Seen: 18:14 Pain Control Pain control: epidural Pelvic Exam Dilation (cm): 4 Effacement (%): 90 station: -2 Amniotic membrane status: Ruptured Contractions Monitor mode: Internal Contraction frequency (min): 3 Contraction pattern: Regular Contraction intensity: Strong/Firm Intrauterine tone measurement: 230 Status status: Category l Heart Rate Baseline: 130 Monitor Accelerations: Absent Monitor Decelerations: Prolonged Monitor Variability: Minimal Assessment and Plan Comments: 23yo at 40w4d here for elective IOL. GBS positive, Rh positive. No complications with . Received 3 doses of cytotec overnight with some cervical change, now on pitocin with good change thus far. AROM performed with meconium stained fluid present. Pt with no cervical change in over 2hrs. IUPC placed, adequate contraction pattern. Pt with prolonged decel for 6 minutes to the 60s. Resolved with hands and knees positioning. Oxygen and IVF bolus going. Pitocin off. Will keep pt in this position to allow baby recovery. Now with minimal variability. Will cautiously continue to monitor, with ongoing laboring.
[2023-07-02] MEDS: ONDANSETRON 4 MG/2 ML INJ IV (20:36)
[2023-07-03] MEDS: AMPICILLIN 1,000 MG in SODIUM CHLORIDE 0.9% 100 ML 200 MG IV ×2 (00:14→04:11)
[2023-07-03] MEDS: FENT 2MCG/ML BUPIV 0.125% EPI 200 MCG/100 ML PLAST..BAG 8 MCG EPIDURAL (01:30)
[2023-07-03] MEDS: LACTATED RINGERS 1,000 ML 100 ML IV (04:12)
--- NOTE | 2023-07-03 07:59 | P.PNOB_ITS ---
Date/Time Date Patient Seen: 07/03/23 Time Patient Seen: 07:59 Pain Control Pain control: epidural Pelvic Exam Dilation (cm): 4 Effacement (%): 90 station: -2 Amniotic membrane status: Ruptured Contractions Monitor mode: Internal Contraction frequency (min): 5 Contraction pattern: Regular Contraction intensity: Moderate Intrauterine tone measurement: 70 Status status: Category l Heart Rate Baseline: 120 Monitor Accelerations: Present Monitor Decelerations: Absent Monitor Variability: Moderate Assessment and Plan Comments: 23yo at 40w4d here for elective IOL. GBS positive, Rh positive. No complications with , however gestational HTN diagnosed at time of IOL. Received 3 doses of cytotec, then on pitocin. AROM performed with meconium stai ciarra fluid present. Pt with multiple prolonged decels, and unable to titrate up pitocin. FHT currently reassuring, however without any cervical change and inability to titrate pitocin, cannot progress induction. After discussion with the pt, will proceed with primary for nonreassuring heart tones. Discussed risks of . Risks including but not limited to bleeding/hemor rhage, infection, injury to other organs such as bowel/bladder, injury to fetus. The pt agrees to blood transfusion if medically necessary. Consent was signed and placed in the chart. Pt will received 2g of Ancef prior to surgery. SCDs to be placed.
--- NOTE | 2023-07-03 08:06 | PM.PREOP ---
Pre-operative Note Interval Note History & Physical reviewed/Exam performed by Physician: Yes Changes to H&P: No
[2023-07-03] MEDS: CEFAZOLIN 2 GM/100 ML PREMIX 100 ML IV (09:00)
--- NOTE | 2023-07-03 09:12 | SUR.OPER ---
Supine on Padded OR bed, head on pillow, safety belt at thigh, arms secured on padded arm boards at <90 degrees abduction. Bump under right buttock. Legs uncrossed with pillow under knees, gel pad to heels, tape over blanket to lower legs.
[2023-07-03] MEDS: AZITHROMYCIN 500 MG in DEXTROSE 5% IN WATER 250 ML 250 MG IV (09:20)
[2023-07-03] MEDS: MEPERIDINE 50 MG/ML INJ 12.5 MG IV (09:54)
--- NOTE | 2023-07-03 09:54 | P.OP_ITS ---
Operative Date/Time/Diagnoses Date of procedure: 07/03/23 Pre-op diagnosis: 40w5d gestation GBS positive Rh positive Nonreassuring heart tones Failure to progress Post-op diagnosis: same Procedure & Clinicians Procedure: Primary Same procedure as scheduled: Yes Indications: Nonreassuring heart tones Failure to progress Surgeon: Kelli Boo Click Yes if Unassisted: No Material Man: Leda Gibbons Anesthesia Type: Spinal Operative Notes Findings: Normal uterus, ovaries, and tubes Closure Type: primary Specimen(s): cord blood Intraoperative meds administered: Acetaminophen, Ketorolac and Pitocin Applied: Catheter Estimated Blood Loss (mL): 400 Blood products transfused: none Procedure in detail: OPERATIVE COURSE: The patient was taken to the operating room where []spinal anesthesia was placed. She was then prepared and draped in the normal sterile fashion in the dorsal supine position with a leftward tilt. Anesthesia was tested and found to be adequate. A Pfannensteil skin incision was then made with the scalpel and carried through to the underlying layer of fascia with the scalpel. The fascia was incised in the midline and the incision extended laterally with the Dodson scissors. The superior aspect of the fascial incision was then grasped with Erik clamps, elevated with the help of the assistant professor surgical technology, and the underlying rectus muscles dissected off bluntly and sharply where needed. Attention was then turned to the inferior aspect of the incision which, in a similar fashion, was grasped, tented up with Erik clamps, and the rectus muscle dissected off bluntly and sharply with Dodson scissors. The rectus muscles were then in the midline, and the peritoneum was identified and entered bluntly. The peritoneal incision was then extended with good visualization of the bladder. Retraction was provided by the assistant professor surgical technology. The bladder blade was then inserted and the vesicouterine peritoneum identified, grasped with pick-ups and entered sharply with the Metzenbaum scissors. The incision was then extended laterally and the bladder flap created digitally. The bladder blade was then reinserted and the lower uterine segment incised in a transverse fashion with the scalpel, with the assistant professor surgical technology providing suction. The uterine incision was then extended superolaterally by pulling superolaterally on both sides. Membranes were ruptured and fluid was thick meconium stained. The bladder blade was removed the infant's head was flexed out of ROT position and delivered atraumatically, with fundal pressure by the maldonado rgical portfolio assistant. The nose and mouth were suctioned with bulb suction and the cord was clamped and cut. The infant was handed off to the waiting nursing staff. Cord blood was collected for Rh status. The placenta was then delivered with gentle cord traction. The uterus was then cleared of all clots and debris. The uterine incision was repaired with O Vicryl in a running, locked fashion. A second layer of the same suture was used to obtain excellent hemostasis. The gutters were cleared of all clots. Hysterotomy was investigated and found to be hemostatic. The peritoneum was closed with 3-O Vicryl. The fascia was reapproximated with O Vicryl in a running fashion. The subcutaneous tissue was reapproximated with 3-O Vicryl. The skin was closed with 4-O Vicryl. The assistant professor surgical technology helped with retraction during closures. SPONGE AND NEEDLE COUNTS: Correct x3. DRESSING: Aquacel ANTICOAGULATION: SCDs applied prior to Surgery Preop antibiotics given (see MAR). The patient was taken to recovery room having tolerated procedure well. Complications: none Baby 1: Infant Gender: Female Presentation: vertex Position: Right Occiput Transverse Placental Delivery Description: Spontaneous Cord Vessel Description: 3 Vessels score (1 min): 7 score (5 min): 9 weight: 7 lb 6.556 oz Post-operative Condition: stable Disposition: PACU Aftercare: routine postop
[2023-07-03 09:56] VITALS: BP 114/73; PULSE 98; RESP 17; TEMP 36.6; O2SAT 97
--- NOTE | 2023-07-03 09:58 | SUR.OPER ---
Baby girl delivered at 0910. Placenta and cord blood tubes x 2 given to L&D RN.
[2023-07-03 10:00] VITALS: BP 112/82; PULSE 82; RESP 12; O2SAT 98
[2023-07-03 10:05] VITALS: BP 109/74; PULSE 88; RESP 17; O2SAT 98
[2023-07-03 10:15] VITALS: BP 123/71; PULSE 79; RESP 12; TEMP 36.7; O2SAT 99
--- NOTE | 2023-07-03 14:11 | P.PCN_ITS ---
Procedures Date/Time Date of procedure: 07/03/23 Time of procedure: 09:00 General Procedure description: Window Shade Cloth Sewer Documentation I assisted the OB environmental compliance technician in the section for this patient. My responsibilities included retracting and suctioning, providing fundal pressure during delivery and following with suture during closure. Please see the OB's note for details of the surgery.
[2023-07-03] MEDS: KETOROLAC 30 MG/ML VIAL IV ×2 (16:00→22:16)
[2023-07-03] MEDS: ACETAMINOPHEN 325 MG TABLET 650 MG PO (22:17)
[2023-07-04] MEDS: KETOROLAC 30 MG/ML VIAL IV (04:09)
[2023-07-04] MEDS: ACETAMINOPHEN 325 MG TABLET 650 MG PO ×2 (04:10→10:03)
[2023-07-04 06:51] LABS: Add Manual Diff / Slide Review NO; Basophils Absolute Auto 0 /uL (0-100); Basophils Percent Auto 0.4 % (0-2); Eosinophils Absolute Auto 100 /uL (0-450); Eosinophils Percent Auto 1.1 % (2-4); Hematocrit 30.8 % (36-46); Hemoglobin 10.6 g/dL (12.0-16.0); Lymphocytes Absolute Auto 1800 /uL (1100-4500); Lymphocytes Percent Auto 20.3 % (25-40); Mean Corpuscular HGB Conc 34.4 % (30-36); Mean Corpuscular Hemoglobin 27.4 PG (26-34); Mean Corpuscular Volume 79.8 fL (80-100); Monocytes Absolute Auto 600 /uL (0-900); Monocytes Percent Auto 7.4 % (3-14); Neutrophils Absolute Auto 6200 /uL (1500-7000); Neutrophils Percent Auto 70.8 % (50-75); Platelet Count 156 X10^3/uL (150-400); Red Blood Cell Count 3.86 X10^6/uL (4.0-5.2); Red Cell Distribution Width 14.3 % (11.6-14.8); White Blood Cell Count 8.7 X10^3/uL (4.5-11.0)
[2023-07-04] MEDS: DOCUSATE 100 MG CAPSULE PO (10:04)
[2023-07-04] MEDS: IBUPROFEN 600 MG TABLET PO (10:04)
[2023-07-04] MEDS: PRENATAL VIT,CALC/IRON/FOLIC 1 TABLET 1 TAB PO (10:04)
--- NOTE | 2023-07-04 11:30 | P.DS_ITS ---
Discharge Providers Provider Date of admission: 07/01/23 19:53 Discharge Date: 07/04/23 Primary care physician: Lilia OBRIEN Provider Consults: 07/03/23 10:47 Consult to Executive Vice President Routine Comment: Discharge provider: Kelli Boo MD Summary Hospital Course Date Patient Seen: 07/04/23 Diagnoses: 40w5d gestation GBS positive Rh positive Nonreassuring heart tones Failure to progress Hospital Course: The pt presented for elective IOL. She received cytotec overnight, and then was started on pitocin. AROM was performed with meconium-stained fluid. She progressed to 4cm dilation. IUPC was ultimately placed due to no significant cervical change. She was unable to advance to further dilation due to nonreassuring FHT and the inability to titrate pitocin. She underwent primary without complications, and delivered a viable baby girl. , there were no complications. At the time of discharge she was voiding, ambulating, and passing flatus without difficulty. Her lochia was decreasing appropriately. Her pain was well controlled. She will f/u in 1 week for incision check. She was formula feeding. Peripartum Data Infant Delivery Method: Section Procedures: Primary complications: none [place] 1: Gender: Female Disposition of : home Time Spent with Patient Time attestation: Total time spent providing and/or coordinating discharge services: Objective Labs 07/04/23 06:31 07/01/23 20:35 Labs: Laboratory Results - last 24 hr 07/04/23 06:31 WBC 8.7 RBC 3.86 L Hgb 10.6 L Hct 30.8 L MCV 79.8 L MCH 27.4 MCHC 34.4 RDW 14.3 Plt Count 156 Neut % (Auto) 70.8 Lymph % (Auto) 20.3 L Leon % (Auto) 7.4 Eos % (Auto) 1.1 L Baso % (Auto) 0.4 Neut # (Auto) 6200 Lymph # (Auto) 1800 Leon # (Auto) 600 Eos # (Auto) 100 Baso # (Auto) 0 Exam Vital Signs (past 8 hours): Oxygen Delivery Method Room Air Resp Auscultation: clear to auscultation bilaterally Cardio Rate: regular rate Rhythm: regular rhythm Heart Sounds: S1 normal, S2 normal and no murmurs GI Inspection: non-distended Palpation: soft, No guarding and tender (appropriately tender) Auscultation: normal bowel sounds Other: fundus firm and below the umbilicus Extrem Right upper extremity: no edema Discharge Plan Discharge Plan Patient Disposition: Home Discharge orders & Medications Prescriptions: New acetaminophen 325 mg Tablet 650 mg PO Q6H Qty: 60 0RF docusate sodium 100 mg Capsule 100 mg PO DAILY Qty: 30 0RF ibuprofen 600 mg Tablet 600 mg PO Q6H Qty: 60 0RF oxycodone 5 mg Tablet 5 mg PO Q4H PRN (Reason: Pain, Moderate (4-6)) Qty: 30 0RF Continued prenat.vits,allan,[id number] Tablet 1 tab PO DAILY Discontinued ondansetron 4 mg tablet,disintegrating 4 mg PO Q8H PRN (Reason: nausea and vomiting) Qty: 10 0RF Follow up/Referrals: Provider,Lilia OBRIEN [Primary Care Provider] - Kelli Boo MD [Physician] - 1 Week (Please follow up with Dr. Boo on July 09 @0945 for an incision check. Please follow up with Dr. Boo on @1130 for your post- visit. Please call the clinic with any further questions, thanks. ) Diet/Activity/Treatments Diet: Diet as Tolerated and Regular Skin/Wound/Dressing Care Report to your healthcare provider any signs of infection, such as:: chills, fever, increased pain and unusual drainage Visit Report/Discharge Packet Instructions: DI for Stand Alone Forms: Discharge: Care, Patient Portal/API, Stroke Signs & Symptoms Discharge Data Primary Care Provider: ProviderLilia
[2023-07-04 11:52] VITALS: BP 122/78; PULSE 79; RESP 15; TEMP 37.2
== END 2023-07-04 13:30 | disposition home or self-care (01) | DRG 788 ==
PROVIDERS: Admitting Provider Family Medicine; Referring Provider Family Medicine; Visit Provider Family Medicine
PROC: 10D00Z1 Extraction of Products of Conception, Low, Open Approach (ICD-10-PCS; CPT 59514; principal; 2023-07-03 08:15)
DX: O76 Abnormality in fetal heart rate and rhythm complicating labor and delivery (principal); O61.0 Failed medical induction of labor; O13.4 Gestational [pregnancy-induced] hypertension without significant proteinuria, complicating childbirth; O99.824 Streptococcus B carrier state complicating childbirth; Z3A.40 40 weeks gestation of pregnancy; Z37.0 Single live birth
CPT/HCPCS: 59050; 59200; 59510; 76815; 80053; 82570; 84156; 85025; 86850; 86900; 86901; G0379; J0290; J0690; J1885; J2175; J2274; J2405; J2590

== ENCOUNTER → 2024-07-30 11:11 | Outpatient (CLI) | payer OTHER, MEDICAID, SELFPAY ==
--- NOTE | 2024-07-30 11:13 | DI.MRI.S_ITS ---
PROCEDURE: MR ANKLE RT WO CON INDICATIONS: PAIN IN RT ANKLE TECHNIQUE: Noncontrast sagittal T1 spin echo and T2 fast spin echo with fat saturation, axial proton density fast spin echo and T2 fast spin echo with fat saturation, coronal T1 spin echo and T2 fast spin echo with fat saturation through the ankle/hindfoot. COMPARISON: None. FINDINGS: Image quality: Excellent. Bones and joints: No bone marrow contusions or fractures. No hindfoot coalitions. No osteochondral injuries of the talar dome. No pathologic joint effusions. Medial structures: The posterior tibialis tendon is mildly thickened with small amount of fluid distending tendon sheath at the level of distal talus and talonavicular joint. The flexor digitorum longus, and flexor hallucis longus tendons are intact. The posterior tibial neurovascular bundle appears normal within the tarsal tunnel, without extrinsic mass effect. The deltoid ligament is intact. Thickened spring ligament complex near its lateral insertion is seen. Lateral structures: The anterior talofibular ligament is markedly thickened with surrounding edema particularly near its lateral insertion. The calcaneofibular, and posterior talofibular ligaments appear mildly thickened. More superiorly, the anterior and posterior tibiofibular ligaments appear intact, as is the intermalleolar ligament. The tibiofibular syndesmosis is normal in width at 2 mm or less. The peroneus brevis tendon is intact. The peroneus longus tendon is thickened at the level of lateral malleolus tip extending to the level of calcaneocuboid joint. No signal abnormality is seen within the sinus tarsi. Anterior structures: The tibialis anterior, extensor hallucis longus, and extensor digitorum longus tendons appear intact. The dorsal talonavicular ligament appears intact. Posterior and plantar structures: Achilles tendon is intact. Medial and lateral bands of the plantar fascia are of normal thickness. No abductor digiti quinti muscle atrophy to suggest Meeks neuropathy. IMPRESSION: 1. No marrow edema. No fracture or dislocation. No osteochondral injuries of talar dome. 2. Low-grade tenosynovitis involving posterior tibialis tendon at the level of distal talus and talonavicular joint. 3. Yogf-sv-fdorwekh tendinosis involving peroneus longus tendon at the level of lateral malleolus tip extending to the level of cuboid. 4. Low to moderate grade sprain/partial-thickness tear involving spring ligament complex near its distal insertion. 5. Moderate grade ATFL sprain and low-grade posterior talofibular ligament and calcaneal fibular ligament sprain. No full-thickness ankle ligament rupture. Dictated by: Chente Koo M.D. on 07/30/2024 at 13:14 Approved by: Chente Koo M.D. on 07/30/2024 at 13:26
== END ==
PROVIDERS: Referring Provider Podiatrist; Visit Provider Podiatrist
DX: S93.491A Sprain of other ligament of right ankle, initial encounter (principal); S93.411A Sprain of calcaneofibular ligament of right ankle, initial encounter; M76.811 Anterior tibial syndrome, right leg; M25.571 Pain in right ankle and joints of right foot; M65.971 Unspecified synovitis and tenosynovitis, right ankle and foot
CPT/HCPCS: 73721

== ENCOUNTER → 2025-02-23 11:38 | Outpatient (CLI) | payer OTHER, SELFPAY ==
[2025-02-23 12:53] LABS: Add Manual Diff / Slide Review NO; Hematocrit 38.7 % (36-46); Hemoglobin 13.0 g/dL (12.0-16.0); Lymphocytes Absolute Auto 1700 /uL (1100-4500); Mean Corpuscular HGB Conc 33.5 % (30-36); Mean Corpuscular Hemoglobin 26.9 PG (26-34); Mean Corpuscular Volume 80.1 fL (80-100); Platelet Count 218 X10^3/uL (150-400)
[2025-02-23 12:54] LABS: Appearance Urine UA CLEAR; Bilirubin Urine UA NEGATIVE (NEGATIVE); Color Urine UA YELLOW; Glucose Urine UA NEGATIVE (Negative); Ketones Urine UA NEGATIVE (NEGATIVE); Leukocyte Esterase Urine UA NEGATIVE (NEGATIVE); Nitrite Urine UA NEGATIVE (Negative); Occult Blood Urine UA NEGATIVE (Negative); Protein Urine UA NEGATIVE (Negative); Specific Gravity Urine UA 1.010 (1.000-1.035); Urobilinogen Urine UA 0.2 E.U./dL (0.2); pH Urine UA 6.0 (4.5-8.0)
[2025-02-24 03:21] LABS: HIV 1 & 2 Ab/Ag 4th Gen Combo NEGATIVE (NEGATIVE); Hep C Virus Ab w/Reflex Quant NEGATIVE s/c (NEGATIVE); Hepatitis B Surface Antigen NEGATIVE s/c (NEGATIVE)
== END ==
PROVIDERS: Referring Provider Family Medicine; Visit Provider Family Medicine
DX: Z34.80 Encounter for supervision of other normal pregnancy, unspecified trimester (principal)
CPT/HCPCS: 36415; 80055; 81003; 86787; 86803; 86850; 86900; 86901; 87086; 87389

== ENCOUNTER → 2025-04-26 | Outpatient (CLI) | payer OTHER, SELFPAY ==
--- NOTE | 2025-04-26 14:57 | DI.US.S_ITS ---
PROCEDURE: US OB FOLLOW UP INDICATIONS: size < date The calculations are made using the working CASEY of 07/30/2025. TECHNIQUE: Real-time scanning was performed of the fetus, with image documentation and biometric measurements. Endovaginal scanning: No COMPARISON: None. FINDINGS: General: A single living intrauterine gestation is present. Presentation: Vertex. Placenta: Placental position is anterior , without previa. Amniotic fluid index: 11.3 cm, normal range is 5-24 cm. Single deepest vertical pocket is 4.0 cm. heart rate: 144 beats per minute. Maternal cervical canal: 4.5 cm long. Normal lower limit is 2.5 cm. biometrics: Biparietal diameter: 6.1 cm, 24 week 5 day Head circumference: 22.3 cm, 24 week 3 day Abdominal circumference: 221 cm, 26 week 4 day Femur length: 4.7 cm, 25 week 6 day Clinically estimated gestational age: 26 week 3 day Composite gestational age from present scan: 25 week 3 day Estimated weight and percentile: 873 g, 21% Anatomic survey: Neuro: Ventricles are normal at less than 10 mm. Cisterna magna is normal at 3-11 mm. Cerebellum is normal in size and morphology. Nuchal skin fold: Normal at less than 6 mm between 14 and 21 weeks gestational age. Face: Nose and lips, facial profile are normal. Spine: No evidence for spina bifida. Heart: 4-chambered heart is present, with normal ventricular outflow tracts. Diaphragm: Diaphragm is intact. Stomach: Left-sided stomach is present. Kidneys: No hydronephrosis. Normal is less than 5 mm in 2nd trimester, less than 7 mm in 3rd trimester. Cord: 3 vessel cord has orthotopic insertion. Bladder: Normal in size. Extremities: All 4 extremities are visualized. IMPRESSION: Single live intrauterine consistent with 25 week 3 day gestation by current ultrasound Approved by: Tal Lopez M.D. on 04/27/2025 at 18:52
== END ==
LOC: US 14:57
PROVIDERS: Referring Provider Family Medicine; Visit Provider Family Medicine
DX: Z34.82 Encounter for supervision of other normal pregnancy, second trimester (principal); Z3A.25 25 weeks gestation of pregnancy
CPT/HCPCS: 76816

== ENCOUNTER → 2025-05-10 09:53 | Outpatient (CLI) | payer OTHER, SELFPAY ==
[2025-05-10 12:09] LABS: Add Manual Diff / Slide Review NO; Hematocrit 38.1 % (36-46); Hemoglobin 12.7 g/dL (12.0-16.0); Lymphocytes Absolute Auto 1600 /uL (1100-4500); Mean Corpuscular HGB Conc 33.3 % (30-36); Mean Corpuscular Hemoglobin 26.8 PG (26-34); Mean Corpuscular Volume 80.6 fL (80-100); Platelet Count 193 X10^3/uL (150-400)
[2025-05-10 13:00] LABS: GTT (PREG) 1 Hour PP 50gm Dose 142 mg/dL (76-139)
== END ==
PROVIDERS: Referring Provider Family Medicine; Visit Provider Family Medicine
DX: Z34.80 Encounter for supervision of other normal pregnancy, unspecified trimester (principal)
CPT/HCPCS: 82950; 85025; 86850